=== PATIENT | female | born 1965 | race Caucasian/White ===

== ENCOUNTER 2018-11-30 15:13 | Inpatient (IN) | payer OTHER ==
[~2018-11-30] VITALS: Ht 162.6 cm; Wt 126.8 kg
[2018-11-30] MEDS ORDERED: KETOROLAC 15 MG INJ IV STA (20:15)
[2018-11-30] MEDS ORDERED: CEFTRIAXONE 1 GM/50 ML (PMX) 50 ML IVPB ONE (21:00)
--- NOTE | 2018-11-30 21:05 | ERD ---
ER Documentation Chief Complaint Chief Complaint RIGHT LOWER LEG SWELLING & RED NON-RAISED RASH HPI 53-year-old woman complains of right anterior lower leg redness and swelling with a rash x2 to 3 days, she has had peripheral edema in the past. Patient denies fevers or chills, no cough, no shortness of breath or chest pain, no hea dache or blurry vision. Patient denies any trauma to the leg or foot. ROS All systems reviewed and are negative except as per history of present illness. Allergies Allergies: Coded Allergies: No Known Allergy (Unverified , 11/30/18) PMhx/Soc obesity, hypertension Medical and Surgical Hx: pt denies Medical Hx, pt denies Surgical Hx History of Surgery: No Anesthesia Reaction: No Hx Neurological Disorder: No Hx Respiratory Disorders: No Hx Cardiac Disorders: No Hx Psychiatric Problems: No Hx Miscellaneous Medical Probl: No Hx Alcohol Use: No Hx Substance Use: No Hx Tobacco Use: No Smoking Status: Never smoker FmHx Family History: No diabetes Physical Exam Vitals Vital Signs Date Temp Pulse Resp B/P (MAP) Pulse Ox O2 O2 Flow FiO2 Time Delivery Rate 11/30/18 124 18 141/72 100 Room Air 19:30 (95) 11/30/18 99.0 88 20 182/104 96 15:27 (130) Physical Exam GENERAL: Well-developed, well-nourished, well-hydrated, in no apparent distress, looks nontoxic in appearance, afebrile CARDIAC: Initially tachycardic and regular, no murmurs rubs or gallops LUNGS: Clear bilaterally no wheezing crackles or stridor ABDOMEN: Soft nontender, no guarding, no rigidity, no rebound, no psoas sign no obturator sign. Normoactive bowel sounds SKIN: Warm and dry to touch, large zone of erythema and induration over the right anterior lower leg with 1+ pitting edema, calves generally symmetrical but no edema in the left lower extremity, no ulcers or pustules noted EXTREMITIES: No clubbing cyanosis, 1+ pitting edema in the right lower extremity, calves are bilaterally symmetrical, no Homans sign, no popliteal cord sign. Distal pulses equal and bilateral PSYCH: Normal affect without agitation or irritability Result Diagram: 11/30/18193411/30/181934 Results 24 hrs Laboratory Tests Test 11/30/18 19:35 White Blood Count 16.1 10^3/ul Red Blood Count 5.03 10^6/ul Hemoglobin 14.2 g/dl Hematocrit 44.4 % Mean Corpuscular Volume 88.3 fl Mean Corpuscular Hemoglobin 28.2 pg Mean Corpuscular Hemoglobin Concent 32.0 g/dl Red Cell Distribution Width 13.7 % Platelet Count 270 10^3/UL Mean Platelet Volume 10.8 fl Immature Granulocytes % 0.500 % Neutrophils % 77.4 % Lymphocytes % 14.9 % Monocytes % 5.8 % Eosinophils % 0.9 % Basophils % 0.5 % Nucleated Red Blood Cells % 0.0 /100WBC Immature Granulocytes # 0.080 10^3/ul Neutrophils # 12.5 10^3/ul Lymphocytes # 2.4 10^3/ul Monocytes # 0.9 10^3/ul Eosinophils # 0.1 10^3/ul Basophils # 0.1 10^3/ul Nucleated Red Blood Cells # 0.0 10^3/ul Sodium Level 145 mmol/L Potassium Level 3.7 mmol/L Chloride Level 100 mmol/L Carbon Dioxide Level 32 mmol/L Anion Gap 13 Blood Urea Nitrogen 10 mg/dl Creatinine 0.76 mg/dl Est Glomerular Filtrat Rate mL/min > 60 mL/min Glucose Level 152 mg/dl Calcium Level 9.3 mg/dl C-Reactive Protein 20.1 mg/dl Current Medications Medications Dose Sig/Fabrice Start Time Status Last (Trade) Ordered Route PRN Stop Time Admin Dose Reason Admin Ketorolac 15 mg ONCE STAT 11/30/18 DC 11/30/18 Tromethamine IV 20:15 20:23 (Toradol) 11/30/18 20:17 Ceftriaxone 50 ml @ ONCE ONCE 11/30/18 DC 11/30/18 Sodium 100 mls/hr IVPB 21:00 21:27 11/30/18 21:29 Vancomycin VANCOMYCIN PER 11/30/18 UNV HCl (Vanco PER PHARMACY PROTOCOL XX 22:00 Iv Per Pharmacy) IV Flush 3 ml PER 11/30/18 UNV (NS 3 ml) PROTOCOL IV 22:00 Ondansetron 4 mg Q6H PRN 11/30/18 UNV HCl (Zofran IV 22:00 Inj) NAUSEA/VOMITI NG 650 mg Q6H PRN 11/30/18 UNV Acetaminophen PO .PAIN 1-3 22:00 (Tylenol OR TEMP Tab) 1 tab Q6H PRN 11/30/18 UNV Acetaminophen PO .MOD PAIN 22:00 / 4-6 Hydrocodone Bitart ([place] (5/325)) Docusate 100 mg Q12H PRN 11/30/18 UNV Sodium PO 22:00 (Colace) .CONSTIPATION Bisacodyl 5 mg DAILY PRN 11/30/18 UNV (Dulcolax) PO 22:00 .CONSTIPATION Enoxaparin 40 mg DAILY SC 12/01/18 UNV Sodium 09:00 (Lovenox) Procedures/MDM IV line was established patient was placed on site monitor rhythm strip revealed a sinus rhythm at about 80 bpm with upright P and T waves. Patient was afebrile I administered Toradol 15 mg IV for pain. CBC reveals a leukocytosis of 16, electrolytes were unremarkable, CRP elevated at 20 Doppler ultrasound of the right lower extremity has been ordered all veins compressible, no DVT. Patient has obvious right lower extremity cellulitis and I administered ceftriaxone 1 g IV Patient will be admitted to [facility] for continued IV antibiotics Departure Diagnosis: Primary Impression: Lower extremity cellulitis Laterality: right Qualified Codes: L03.115 - Cellulitis of right lower limb Condition: DORI Blount MD Nov 30, 2018 21:04
--- NOTE | 2018-11-30 21:41 | HP ---
Date/Time of Note Date/Time of Note DATE: 11/30/18 TIME: 21:41 Assessment/Plan VTE Prophylaxis Pharmacological prophylaxis: LMWH Lines/Catheters IV [facility]ter [facility]from [facility]): Saline Lock Assessment/Plan Hospital Course This is a 53-year female being admitted to the [facility] floor for: #1 right lower extremity cellulitis: Etiology unknown, no overt trauma noted. Possibly secondary to morbid obesity. Elevated CRP. Vancomycin IV per pharmacy. Right CT of the lower extremities also been ordered to evaluate for any underlying abscess. Monitor for any signs of fevers. Ultrasound venous Dopplers of the right lower extremity were negative for DVT #2 morbid obesity: We will check hemoglobin A 1C, lipid panel, TSH, encourage diet and lifestyle modification #3 DVT GI prophylaxis: Lovenox, no GI prophylaxis indicated Further treatment strategy will be implemented as per the clinical course. Result Diagram: 11/30/18193411/30/181934 Results 24hrs Laboratory Tests Test 11/30/18 19:35 White Blood Count 16.1 H Red Blood Count 5.03 Hemoglobin 14.2 Hematocrit 44.4 Mean Corpuscular Volume 88.3 Mean Corpuscular Hemoglobin 28.2 L Mean Corpuscular Hemoglobin Concent 32.0 Red Cell Distribution Width 13.7 Platelet Count 270 Mean Platelet Volume 10.8 H Immature Granulocytes % 0.500 H Neutrophils % 77.4 H Lymphocytes % 14.9 L Monocytes % 5.8 Eosinophils % 0.9 Basophils % 0.5 Nucleated Red Blood Cells % 0.0 Immature Granulocytes # 0.080 H Neutrophils # 12.5 H Lymphocytes # 2.4 Monocytes # 0.9 Eosinophils # 0.1 Basophils # 0.1 Nucleated Red Blood Cells # 0.0 Sodium Level 145 H Potassium Level 3.7 Chloride Level 100 Carbon Dioxide Level 32 H Anion Gap 13 Blood Urea Nitrogen 10 Creatinine 0.76 Est Glomerular Filtrat Rate mL/min > 60 Glucose Level 152 Calcium Level 9.3 C-Reactive Protein 20.1 H HPI/ROS Admit Date/Time Admit Date/Time Hx of Present Illness Chief complaint: Right lower leg redness swelling, pain 53-year-old woman complains of right anterior lower leg redness and swelling with a rash x2. Presents with her daughter. She states that this is never occurred to her before. She denies any trauma or cuts to the right lower extremity. She reports subjective fevers at home, but did not check her temperature., no cough, no shortness of breath or chest pain, no headache or blurry vision. Allergies: NKDA Medications: None ROS Const: As per HPI Eyes : No pain discharge or redness or change in visual acuity ENT: No pain, sore throat, congestion, congestion, dysphagia or discharge Respiratory: No shortness of breath, cough, sputum, wheezing, or pleuritic pain Cardiovascular: No chest pain, palpitation, PND, or edema GI : no change in appetite, abdominal pain, nausea, vomiting, diarrhea, constipation, or change in the color his stool Genitourinary: No dysuria, hematuria, flank pain , discharge or CVA tenderness Musculoskeletal: As per HPI Skin: As per HPI Neuro: No headache, dizziness, syncope, seizure, focal weakness Endocrine: No polyuria, polydipsia, temperature intolerance Psych: No hallucination, depression, anxiety or suicidal ideation PMH/Family/Social Past Medical History Medical History: no pertinent history Coded Allergies: No Known Allergy (Unverified , 11/30/18) Past Surgical History x2 Family History Significant Family History: no pertinent family hx Social History Alcohol Use: none Smoking Status: Never smoker Drug Use: none Exam/Review of Systems Vital Signs Vitals Vital Signs Date Temp Pulse Resp B/P (MAP) Pulse Ox O2 O2 Flow FiO2 Time Delivery Rate 11/30/18 124 18 141/72 100 Room Air 19:30 (95) 11/30/18 99.0 15:27 Exam Exam General: Pleasant female currently lying in bed in no acute distress HEENT: Atraumatic, normocephalic. The pupils are equal, round and reactive. Extraocular motor are intact Neck: Supple with full range of motion. No rigidity or meningismus Chest: Nontender Lungs: Clear to auscultation bilaterally no crackles rales or wheezing Heart: Normal S1-S2, Regular rhythm and rate. No murmur, S3, or S4 Abdomen: Soft , nontender, nondistended , bowel sounds are present. No guarding no rebound tenderness , No masses or organomegaly. No costovertebral temporal angle mass Extremities: Redness and erythema and mild swelling noted of the right lower extremity, swelling of the right lower extremity slightly greater than the left Skin: Right lower extremity redness and erythema and warmth noted from the ankle to the knee, lines of demarcation have been drawn. Dry skin noted of the right great toe plantar surface but no overt lesions or lacerations noted Neurologic: Normal mental status, speech normal, cranial nerves II through XII are intact, motor and sensory are intact, no focal weakness Additional Comments PROCEDURE: US Lower extremity Venous. CLINICAL INDICATION: Right lower extremity erythema and swelling TECHNIQUE: Multiple sonographic images of the right lower extremity deep venous system were obtained utilizing grayscale, color-flow, compressive sonography and doppler imaging with augmentation. The images were reviewed on a PACS workstation. COMPARISON: None. FINDINGS: There is normal compressibility and flow within the right common femoral, deep femoral, superficial femoral and popliteal veins. The deep veins of the calf were also visualized and without thrombus. IMPRESSION: No sonographic evidence for deep venous thrombosis in the right lower extremity. Tony Gloria Physician Date Time Electronically viewed and signed by Tony Gloria Physician on 11/30/2018 21:03 ML/ CC: DORI TEIXEIRA MD [id number] MARGI BRANDT Nov 30, 2018 21:41
[2018-11-30] MEDS ORDERED: ONDANSETRON 4 MG INJ IV PRN (22:00)
[2018-11-30] MEDS ORDERED: VANCOMYCIN IV PER PHARMACY XX SCH (22:00)
[2018-11-30] MEDS ORDERED: HYDROCODONE/APAP (5/325) TAB PO PRN (22:00)
[2018-11-30] MEDS ORDERED: DOCUSATE SODIUM 100 MG CAP PO PRN (22:00)
[2018-11-30] MEDS ORDERED: NACL 0.9% 3 ML SYG IV SCH (22:00)
[2018-11-30] MEDS ORDERED: BISACODYL (EC) 5 MG TAB PO PRN (22:00)
[2018-11-30] MEDS ORDERED: IOHEXOL 300MG/ML 150 ML BTL ONE (22:49)
[2018-11-30] MEDS ORDERED: SOD CHLORIDE 0.9% 100 ML ONE (22:49)
[2018-11-30 23:00] VITALS: BP 142/64; PULSE 91; RESP 18
[2018-11-30] MEDS ORDERED: VANCOMYCIN HCL 2 GM in SOD CHLORIDE 0.9% 500 ML IVPB SCH (23:30)
[2018-11-30 23:35] VITALS: Ht 162.6 cm; Wt 126.8 kg
[2018-12-01 01:25] VITALS: BP 113/57; PULSE 104; RESP 18
[2018-12-01 02:58] VITALS: BP 108/59; PULSE 100; RESP 18
[2018-12-01] MEDS: ACETAMINOPHEN 325 MG TAB PO PRN ×2 (03:02→14:48)
[2018-12-01 07:37] VITALS: BP 130/65; PULSE 86; RESP 16
[2018-12-01] MEDS: VANCOMYCIN HCL 1.5 GM in SOD CHLORIDE 0.9% 250 ML IVPB SCH ×2 (09:32→21:00)
[2018-12-01] MEDS: ENOXAPARIN 40 MG/0.4 ML SYG SC SCH (09:33)
[2018-12-01] MEDS ORDERED: POTASSIUM CHLORIDE (SR) 20 MEQ TAB PO STA (11:14)
[2018-12-01 13:45] VITALS: BP 128/60; PULSE 102; RESP 16
--- NOTE | 2018-12-01 15:26 | PN ---
Date/Time of Note Date/Time of Note DATE: 12/01/18 TIME: 15:24 Assessment/Plan VTE Prophylaxis Risk score (from Nsg)>0 risk: 1 Pharmacological prophylaxis: LMWH Lines/Catheters IV Catheter Type (from Nrsg): Peripheral IV Urinary Cath still in place: No Assessment/Plan Hospital Course 1. Right lower extremity cellulitis Etiology unclear, possibly related to morbid obesity Continue vancomycin IV Ultrasound of lower extremities negative for DVT, CT of the lower extremity is negative for abscess but cellulitis is noted 2. Morbid obesity Left cell changes Prophylaxis: Lovenox Result Diagram: 12/01/18 0357 12/01/18 0357 Results 24hrs Laboratory Tests Test 11/30/18 19:35 12/01/18 03:40 12/01/18 03:57 12/01/18 05:23 White Blood Count 16.1 H 12.5 #H Red Blood Count 5.03 4.29 Hemoglobin 14.2 12.0 Hematocrit 44.4 36.8 L Mean Corpuscular 88.3 85.8 Volume Mean Corpuscular 28.2 L 28.0 L Hemoglobin Mean Corpuscular 32.0 32.6 Hemoglobin Concent Red Cell 13.7 13.6 Distribution Width Platelet Count 270 236 Mean Platelet Volume 10.8 H 10.4 Immature 0.500 H 0.200 Granulocytes % Neutrophils % 77.4 H 80.0 H Lymphocytes % 14.9 L 13.0 L Monocytes % 5.8 6.2 Eosinophils % 0.9 0.2 Basophils % 0.5 0.4 Nucleated Red Blood 0.0 0.0 Cells % Immature 0.080 H 0.030 Granulocytes # Neutrophils # 12.5 H 10.0 H Lymphocytes # 2.4 1.6 Monocytes # 0.9 0.8 Eosinophils # 0.1 0.0 Basophils # 0.1 0.1 Nucleated Red Blood 0.0 0.0 Cells # Sodium Level 145 H 138 Potassium Level 3.7 3.2 L Chloride Level 100 102 Carbon Dioxide Level 32 H 27 Anion Gap 13 9 Blood Urea Nitrogen 10 11 Creatinine 0.76 0.69 Est Glomerular > 60 > 60 Filtrat Rate mL/min Glucose Level 152 140 Calcium Level 9.3 8.4 C-Reactive Protein 20.1 H 16.4 H Lactic Acid Level 1.1 Erythrocyte 60 H Sedimentation Rate Hemoglobin A1c 6.1 H Magnesium Level 2.1 Total Bilirubin 0.5 Direct Bilirubin 0.00 Indirect Bilirubin 0.5 Aspartate Amino 40 Transf (AST/SGOT) Alanine 45 Aminotransferase (AL T/SGPT) Alkaline Phosphatase 90 Total Protein 7.4 Albumin 3.7 Globulin 3.70 H Albumin/Globulin 1.00 Ratio Triglycerides Level 96 Cholesterol Level 123 LDL Cholesterol, 79 Calculated HDL Cholesterol 25 L Cholesterol/HDL 4.9 Ratio Thyroid Stimulating 1.150 Hormone (TSH) Prothrombin Time 13.5 Prothrombin Time 1.1 Ratio INR International 1.02 Normalized Ratio Activated 31.6 Partial Thromboplast Time Subjective 24 Hr Interval Summary Constitutional: no complaints Exam/Review of Systems Exam Vitals Vital Signs Date Temp Pulse Resp B/P (MAP) Pulse Ox O2 O2 Flow FiO2 Time Delivery Rate 12/01/18 101.6 14:48 12/01/18 102 16 128/60 96 13:45 (82) 11/30/18 Room Air 23:00 Intake and Output 11/30/18 11/30/18 12/01/18 1515:00 23:00 07:00 IntakeIntake Total 50 ml BalanceBalance 50 ml Constitutional: alert, oriented Respiratory: clear to auscultation Cardiovascular: regular rate and rhythm Gastrointestinal: soft; No distended Musculoskeletal: No nl extremities to inspection Results Results 24hrs Laboratory Tests Test 11/30/18 19:35 12/01/18 03:40 12/01/18 03:57 12/01/18 05:23 White Blood Count 16.1 H 12.5 #H Red Blood Count 5.03 4.29 Hemoglobin 14.2 12.0 Hematocrit 44.4 36.8 L Mean Corpuscular 88.3 85.8 Volume Mean Corpuscular 28.2 L 28.0 L Hemoglobin Mean Corpuscular 32.0 32.6 Hemoglobin Concent Red Cell 13.7 13.6 Distribution Width Platelet Count 270 236 Mean Platelet Volume 10.8 H 10.4 Immature 0.500 H 0.200 Granulocytes % Neutrophils % 77.4 H 80.0 H Lymphocytes % 14.9 L 13.0 L Monocytes % 5.8 6.2 Eosinophils % 0.9 0.2 Basophils % 0.5 0.4 Nucleated Red Blood 0.0 0.0 Cells % Immature 0.080 H 0.030 Granulocytes # Neutrophils # 12.5 H 10.0 H Lymphocytes # 2.4 1.6 Monocytes # 0.9 0.8 Eosinophils # 0.1 0.0 Basophils # 0.1 0.1 Nucleated Red Blood 0.0 0.0 Cells # Sodium Level 145 H 138 Potassium Level 3.7 3.2 L Chloride Level 100 102 Carbon Dioxide Level 32 H 27 Anion Gap 13 9 Blood Urea Nitrogen 10 11 Creatinine 0.76 0.69 Est Glomerular > 60 > 60 Filtrat Rate mL/min Glucose Level 152 140 Calcium Level 9.3 8.4 C-Reactive Protein 20.1 H 16.4 H Lactic Acid Level 1.1 Erythrocyte 60 H Sedimentation Rate Hemoglobin A1c 6.1 H Magnesium Level 2.1 Total Bilirubin 0.5 Direct Bilirubin 0.00 Indirect Bilirubin 0.5 Aspartate Amino 40 Transf (AST/SGOT) Alanine 45 Aminotransferase (AL T/SGPT) Alkaline Phosphatase 90 Total Protein 7.4 Albumin 3.7 Globulin 3.70 H Albumin/Globulin 1.00 Ratio Triglycerides Level 96 Cholesterol Level 123 LDL Cholesterol, 79 Calculated HDL Cholesterol 25 L Cholesterol/HDL 4.9 Ratio Thyroid Stimulating 1.150 Hormone (TSH) Prothrombin Time 13.5 Prothrombin Time 1.1 Ratio INR International 1.02 Normalized Ratio Activated 31.6 Partial Thromboplast Time Medications Medication Current Medications Vancomycin HCl (Vanco Iv Per Pharmacy) VANCOMYCIN PER PHARMACY PER PROTOCOL XX ; Start 11/30/18 at 22:00 IV Flush (NS 3 ml) 3 ml PER PROTOCOL IV ; Start 11/30/18 at 22:00 Ondansetron HCl (Zofran Inj) 4 mg Q6H PRN IV NAUSEA/VOMITING; Start 11/30/18 at 22:00 Acetaminophen (Tylenol Tab) 650 mg Q6H PRN PO .PAIN 1-3 OR TEMP Last administered on 12/01/18at 14:48; Admin Dose 650 MG; Start 11/30/18 at 22:00 Acetaminophen/ Hydrocodone Bitart ([place] (5/325)) 1 tab Q6H PRN PO .MOD PAIN 4- 6; Start 11/30/18 at 22:00 Docusate Sodium (Colace) 100 mg Q12H PRN PO .CONSTIPATION; Start 11/30/18 at 22:00 Bisacodyl (Dulcolax) 5 mg DAILY PRN PO .CONSTIPATION; Start 11/30/18 at 22:00 Enoxaparin Sodium (Lovenox) 40 mg DAILY SC Last administered on 12/01/18at 09:33; Admin Dose 40 MG; Start 12/01/18 at 09:00 Vancomycin HCl 1.5 gm/Sodium Chloride 250 ml @ 83.333 mls/ hr Q12H IVPB Last administered on 12/01/18at 09:32; Admin Dose 83.333 MLS/HR; Start 12/01/18 at 10:00 Miscellaneous Information (*Rx Drug Level Order Reminder*) VANCO TROUGH @ 0,900 0900 ONCE XX ; Start 12/02/18 at 09:00; Stop 12/02/18 at 09:01 TAL IRIZARRY Dec 01, 2018 15:26
[2018-12-01 19:58] VITALS: BP 137/79; PULSE 94; RESP 17
[2018-12-02 02:40] VITALS: BP 128/75; PULSE 79; RESP 18
[2018-12-02 07:55] VITALS: BP 134/78; PULSE 78; RESP 15; RESP 89
[2018-12-02] MEDS: ENOXAPARIN 40 MG/0.4 ML SYG SC SCH (09:55)
[2018-12-02] MEDS: VANCOMYCIN HCL 1.5 GM in SOD CHLORIDE 0.9% 250 ML IVPB SCH (10:09)
[2018-12-02] MEDS ORDERED: POTASSIUM CHLORIDE (SR) 20 MEQ TAB PO STA (11:53)
[2018-12-02 14:03] VITALS: BP 137/81; PULSE 91; RESP 16
--- NOTE | 2018-12-02 15:30 | PN ---
Date/Time of Note Date/Time of Note DATE: 12/02/18 TIME: 15:30 Assessment/Plan VTE Prophylaxis Risk score (from Nsg)>0 risk: 3 Pharmacological prophylaxis: LMWH Lines/Catheters IV Catheter Type (from Nrsg): Peripheral IV Urinary Cath still in place: No Assessment/Plan Hospital Course 1. Right lower extremity cellulitis/rash Etiology unclear Consultation appreciated Surgery consultation for biopsy Continue vancomycin IV, add doxycycline Ultrasound of lower extremities negative for DVT, CT of the lower extremity is negative for abscess but cellulitis is noted 2. Morbid obesity Lifestyle changes Prophylaxis: Lovenox Result Diagram: 12/02/18 0838 12/02/1838 Results 24hrs Laboratory Tests Test 12/02/18 08:38 White Blood Count 13.0 H Red Blood Count 4.24 Hemoglobin 11.7 L Hematocrit 36.8 L Mean Corpuscular Volume 86.8 Mean Corpuscular Hemoglobin 27.6 L Mean Corpuscular Hemoglobin Concent 31.8 L Red Cell Distribution Width 13.9 Platelet Count 256 Mean Platelet Volume 10.6 H Immature Granulocytes % 0.600 H Neutrophils % 72.1 Lymphocytes % 17.0 Monocytes % 9.1 Eosinophils % 0.6 Basophils % 0.6 Nucleated Red Blood Cells % 0.0 Immature Granulocytes # 0.080 H Neutrophils # 9.4 H Lymphocytes # 2.2 Monocytes # 1.2 H Eosinophils # 0.1 Basophils # 0.1 Nucleated Red Blood Cells # 0.0 Sodium Level 140 Potassium Level 3.4 L Chloride Level 102 Carbon Dioxide Level 30 Anion Gap 8 Blood Urea Nitrogen 7 Creatinine 0.71 Est Glomerular Filtrat Rate mL/min > 60 Glucose Level 124 Calcium Level 8.8 Total Bilirubin 0.6 Direct Bilirubin 0.00 Indirect Bilirubin 0.6 Aspartate Amino Transf (AST/SGOT) 40 Alanine Aminotransferase (ALT/SGPT) 49 Alkaline Phosphatase 107 Total Protein 7.6 Albumin 3.8 Globulin 3.80 H Albumin/Globulin Ratio 1.00 Vancomycin Level Trough 7.0 L Subjective 24 Hr Interval Summary Constitutional: no complaints Exam/Review of Systems Exam Vitals Vital Signs Date Temp Pulse Resp B/P (MAP) Pulse Ox O2 O2 Flow FiO2 Time Delivery Rate 12/02/18 99.5 91 16 137/81 97 Room Air 14:03 (99) Intake and Output 12/01/18 12/01/18 12/02/18 1515:00 23:00 07:00 IntakeIntake Total 640 ml 440 ml 250 ml BalanceBalance 640 ml 440 ml 250 ml Constitutional: alert, oriented Respiratory: clear to auscultation Cardiovascular: regular rate and rhythm Gastrointestinal: soft; No distended Musculoskeletal: No nl extremities to inspection Results Results 24hrs Laboratory Tests Test 12/02/18 08:38 White Blood Count 13.0 H Red Blood Count 4.24 Hemoglobin 11.7 L Hematocrit 36.8 L Mean Corpuscular Volume 86.8 Mean Corpuscular Hemoglobin 27.6 L Mean Corpuscular Hemoglobin Concent 31.8 L Red Cell Distribution Width 13.9 Platelet Count 256 Mean Platelet Volume 10.6 H Immature Granulocytes % 0.600 H Neutrophils % 72.1 Lymphocytes % 17.0 Monocytes % 9.1 Eosinophils % 0.6 Basophils % 0.6 Nucleated Red Blood Cells % 0.0 Immature Granulocytes # 0.080 H Neutrophils # 9.4 H Lymphocytes # 2.2 Monocytes # 1.2 H Eosinophils # 0.1 Basophils # 0.1 Nucleated Red Blood Cells # 0.0 Sodium Level 140 Potassium Level 3.4 L Chloride Level 102 Carbon Dioxide Level 30 Anion Gap 8 Blood Urea Nitrogen 7 Creatinine 0.71 Est Glomerular Filtrat Rate mL/min > 60 Glucose Level 124 Calcium Level 8.8 Total Bilirubin 0.6 Direct Bilirubin 0.00 Indirect Bilirubin 0.6 Aspartate Amino Transf (AST/SGOT) 40 Alanine Aminotransferase (ALT/SGPT) 49 Alkaline Phosphatase 107 Total Protein 7.6 Albumin 3.8 Globulin 3.80 H Albumin/Globulin Ratio 1.00 Vancomycin Level Trough 7.0 L Medications Medication Current Medications Vancomycin HCl (Vanco Iv Per Pharmacy) VANCOMYCIN PER PHARMACY PER PROTOCOL XX ; Start 11/30/18 at 22:00 IV Flush (NS 3 ml) 3 ml PER PROTOCOL IV Last administered on 12/02/18at 10:14; Admin Dose 3 ML; Start 11/30/18 at 22:00 Ondansetron HCl (Zofran Inj) 4 mg Q6H PRN IV NAUSEA/VOMITING; Start 11/30/18 at 22:00 Acetaminophen (Tylenol Tab) 650 mg Q6H PRN PO .PAIN 1-3 OR TEMP Last administered on 12/01/18at 14:48; Admin Dose 650 MG; Start 11/30/18 at 22:00 Acetaminophen/ Hydrocodone Bitart ([place] (5/325)) 1 tab Q6H PRN PO .MOD PAIN 4- 6; Start 11/30/18 at 22:00 Docusate Sodium (Colace) 100 mg Q12H PRN PO .CONSTIPATION; Start 11/30/18 at 22:00 Bisacodyl (Dulcolax) 5 mg DAILY PRN PO .CONSTIPATION; Start 11/30/18 at 22:00 Enoxaparin Sodium (Lovenox) 40 mg DAILY SC Last administered on 12/02/18at 09:55; Admin Dose 40 MG; Start 12/01/18 at 09:00 Vancomycin HCl 1.25 gm/Sodium Chloride 250 ml @ 83.333 mls/ hr Q8H IVPB ; S tart 12/02/18 at 18:00 Miscellaneous Information (*Rx Drug Level Order Reminder*) MADELEINEO TR AT 1 700 1700 ONCE XX ; Start 12/03/18 at 17:00; Stop 12/03/18 at 17:01 TAL IRIZARRY Dec 02, 2018 15:30
[2018-12-02] MEDS: VANCOMYCIN HCL 1.25 GM in SOD CHLORIDE 0.9% 250 ML IVPB SCH (17:10)
[2018-12-02 19:43] VITALS: BP 118/61; PULSE 97; RESP 18
[2018-12-02] MEDS: DOXYCYCLINE 100 MG TAB PO SCH (20:22)
[2018-12-03] MEDS: VANCOMYCIN HCL 1.25 GM in SOD CHLORIDE 0.9% 250 ML IVPB SCH ×3 (01:06→18:20)
[2018-12-03 01:38] VITALS: BP 129/63; PULSE 90; RESP 18
[2018-12-03 08:05] VITALS: BP 135/72; PULSE 85; RESP 18
[2018-12-03] MEDS: DOXYCYCLINE 100 MG TAB PO SCH ×2 (09:05→20:18)
[2018-12-03] MEDS: ENOXAPARIN 40 MG/0.4 ML SYG SC SCH (09:06)
--- NOTE | 2018-12-03 09:08 | CONS ---
DATE OF ADMISSION: 11/30/2018 DATE OF CONSULTATION: 12/02/2018 TYPE OF CONSULTATION: Infectious Disease. REASON FOR CONSULTATION: Antibiotic management. HISTORY OF PRESENT ILLNESS: Katie Schumacher is a 53-year-old female with right lower leg swelling and red nonraised rash. The patient comes in complaining of right anterior lower leg redness and swelling w ith a rash for 2 or 3 days. She has had peripheral edema in the past. She denies fever or chills. She denies shortness of breath. Systems are negative except for present illness. PAST MEDICAL HISTORY: As outlined. FAMILY HISTORY: Noncontributory. SOCIAL HISTORY: She does not smoke, drink or abuse drugs. ALLERGIES: NONE TO PENICILLIN, SULFA OR FOODS. MEDICATIONS: Per chart. REVIEW OF SYSTEMS: As per HPI. ANCILLARY LABORATORY DATA: White count 16.1, H and H 14.2 and 44.4, platelet count 270,000. BUN and creatinine 10/0.76, glucose of 152. IMPRESSION AND PLAN: The patient has right lower extremity cellulitis. She has morbid obesity. She has an elevated CRP. She is on vancomycin. A CT scan of the right lower extremity has been ordered . The CT scan shows extensive soft tissue swelling most pronounced along the distal fibula and tibia , likely reflective of cellulitis. No discrete soft tissue abscess is evident. No acute bony change s. Currently, she has no evidence of DVT. We will continue her on her current therapy of vancomycin and observe for improvement. If she does not improve, we will add gram-negative coverage. I will d ictate my findings to the hospitalist. Dictated By: FLEX CASTANEDA MD, JD/AIDA Conf#: [id number] DID#: [id number] CC: TAL IRIZARRY MD; MARGI BRANDT MD;*EndCC*
[2018-12-03] MEDS ORDERED: LIDOCAINE 2%/EPI (MDV) 20ML INJ INJ STA (10:21)
--- NOTE | 2018-12-03 10:43 | CONS ---
"Assessment/Plan Assessment/Plan Hospital Course (Demo Recall) 1. Right lower extremity cellulitis of unknown etiology -Skin biopsy today -Continue antibiotics per ID -Local care 2. Leukocytosis: Improved: -As above 3.Prediabetes: Hemoglobin A1c 6.1: -Highly encourage weight loss -Glucose optimization 4. Morbid obesity BMI: 48 -diet and exercise optimization -encourage weight loss Thank you. Patient seen and examined in collaboration with Dr. Hill Morris. Consultation Date/Type/Reason Admit Date/Time Date of Consultation: Dec 03, 2018 Type of Consult Surgical Reason for Consultation Skin biopsy Requesting Provider: TAL IRIZARRY Date/Time of Note DATE: 12/03/18 TIME: 10:26 Hx of Present Illness Katie Schumacher is a 53-year-old woman with past medical history of obesity who pres ents to the ED with complaints of right lower extremity redness and swelling the presented 1 day prior to admission. She denies trauma to the area, denies taking new medications, new detergents, new cosmetic products, changes in routine, recent sick contacts, history of the same. She reports subjective fevers at home. She denies chills, congestive cough, chest pain, palpitations, GI symptoms, change in bowel or bladder habits, numbness or tingling of extremities. On work-up, she was noted to have leukocytosis and was started on antibiotics for cellulitis of right lower extremity. CT of the right lower extremity shows extensive soft tissue swelling most pronounced along distal fibula and tibia likely reflective of cellulitis without evidence of soft tissue abscess. Ultrasound of the right lower extremity is negative for DVT. General surgery was asked to evaluate. 12 point review of systems was performed and is negative except as stated in HPI. Past Medical History Morbid obesity: BMI 48 Medications Current Medications Vancomycin HCl (Vanco Iv Per Pharmacy) VANCOMYCIN PER PHARMACY PER PROTOCOL XX ; Start 11/30/18 at 22:00 IV Flush (NS 3 ml) 3 ml PER PROTOCOL IV Last administered on 12/02/18at 10:14; Admin Dose 3 ML; Start 11/30/18 at 22:00 Ondansetron HCl (Zofran Inj) 4 mg Q6H PRN IV NAUSEA/VOMITING; Start 11/30/18 at 22:00 Acetaminophen (Tylenol Tab) 650 mg Q6H PRN PO .PAIN 1-3 OR TEMP Last administered on 12/01/18at 14:48; Admin Dose 650 MG; Start 11/30/18 at 22:00 Acetaminophen/ Hydrocodone Bitart ([place] (5/325)) 1 tab Q6H PRN PO .MOD PAIN 4- 6; Start 11/30/18 at 22:00 Docusate Sodium (Colace) 100 mg Q12H PRN PO .CONSTIPATION; Start 11/30/18 at 22:00 Bisacodyl (Dulcolax) 5 mg DAILY PRN PO .CONSTIPATION; Start 11/30/18 at 22:00 Enoxaparin Sodium (Lovenox) 40 mg DAILY SC Last administered on 12/03/18at 09:06; Admin Dose 40 MG; Start 12/01/18 at 09:00 Vancomycin HCl 1.25 gm/Sodium Chloride 250 ml @ 83.333 mls/ hr Q8H IVPB Last administered on 12/03/18at 09:06; Admin Dose 83.333 MLS/HR; Start 12/02/18 at 18:00 Miscellaneous Information (*Rx Drug Level Order Reminder*) VANCO TR AT 1700 1700 ONCE XX ; Start 12/03/18 at 17:00; Stop 12/03/18 at 17:01 Doxycycline Hyclate (Vibramycin) 100 mg BID PO Last administered on 12/03/18at 09:05; Admin Dose 100 MG; Start 12/02/18 at 21:00 Lidocaine/ Epinephrine (Xylocaine 2%/ Epi (Mdv) 20 ml) 20 ml ONCE STAT INJ ; Start 12/03/18 at 10:21; Stop 12/03/18 at 10:22; Status UNV Allergies: Coded Allergies: No Known Allergy (Unverified , 11/30/18) Past Surgical History x2 Family History Significant Family History: no pertinent family hx Social History Alcohol Use: none Smoking Status: Never smoker Drug Use: none Exam/Review of Systems Exam Vitals Vital Signs Date Temp Pulse Resp B/P (MAP) Pulse Ox O2 O2 Flow FiO2 Time Delivery Rate 12/03/18 98.4 85 18 135/72 96 08:05 (93) 12/02/18 Room Air 14:03 Intake and Output 12/02/18 12/02/18 12/03/18 1515:00 23:00 07:00 IntakeIntake Total 250 ml 460 ml BalanceBalance 250 ml 460 ml Constitutional: alert, oriented Psych: nl mood/affect; No anxiety Head: normocephalic, atraumatic Eyes: nl conjunctiva, nl lids, nl sclera ENMT: nl external ears & nose, nl lips & teeth, mucosa pink and moist Neck: supple, non-tender; No jvd Respiratory: normal air movement; No congested cough Cardiovascular: regular rate and rhythm, nl pulses, edema (Right lower extremity) Gastrointestinal: soft, non-tender; No ascites, No distended Musculoskeletal: nl extremities to inspection, nl gait and stance; No joint tenderness Extremities: normal pulses, pitting pedal edema (Right lower extremity 1+) Neurological: nl mental status, nl speech, nl strength Skin: rash or lesions (Right lower extremity: Anterior: Large confluent areas of erythema | posterior: Multiple bullae) Results Result Diagram: 12/03/1815 12/03/1815 Results 24hrs Laboratory Tests Test 12/03/18 05:15 White Blood Count 14.6 H Red Blood Count 4.04 L Hemoglobin 11.3 L Hematocrit 35.6 L Mean Corpuscular Volume 88.1 Mean Corpuscular Hemoglobin 28.0 L Mean Corpuscular Hemoglobin Concent 31.7 L Red Cell Distribution Width 14.1 Platelet Count 263 Mean Platelet Volume 10.5 H Immature Granulocytes % 0.600 H Neutrophils % 70.1 Lymphocytes % 19.8 Monocytes % 7.3 Eosinophils % 1.6 Basophils % 0.6 Nucleated Red Blood Cells % 0.0 Immature Granulocytes # 0.090 H Neutrophils # 10.2 H Lymphocytes # 2.9 Monocytes # 1.1 H Eosinophils # 0.2 Basophils # 0.1 Nucleated Red Blood Cells # 0.0 Sodium Level 141 Potassium Level 4.7 Chloride Level 104 Carbon Dioxide Level 30 Anion Gap 7 Blood Urea Nitrogen 10 Creatinine 0.84 Est Glomerular Filtrat Rate mL/min > 60 Glucose Level 130 Calcium Level 8.7 Medications Medication Current Medications Vancomycin HCl (Vanco Iv Per Pharmacy) VANCOMYCIN PER PHARMACY PER PROTOCOL XX ; Start 11/30/18 at 22:00 IV Flush (NS 3 ml) 3 ml PER PROTOCOL IV Last administered on 12/02/18at 10:14; A dmin Dose 3 ML; Start 11/30/18 at 22:00 Ondansetron HCl (Zofran Inj) 4 mg Q6H PRN IV NAUSEA/VOMITING; Start 11/30/18 at 22:00 Acetaminophen (Tylenol Tab) 650 mg Q6H PRN PO .PAIN 1-3 OR TEMP Last adm inistered on 12/01/18at 14:48; Admin Dose 650 MG; Start 11/30/18 at 22:00 Acetaminophen/ Hydrocodone Bitart ([place] (5/325)) 1 tab Q6H PRN PO .MOD PAIN 4- 6; Start 11/30/18 at 22:00 Docusate Sodium (Colace) 100 mg Q12H PRN PO .CONSTIPATION; Start 11/30/18 at 22:00 Bisacodyl (Dulcolax) 5 mg DAILY PRN PO .CONSTIPATION; Start 11/30/18 at 22:00 Enoxaparin Sodium (Lovenox) 40 mg DAILY SC Last administered on 12/03/18at 09:06; Admin Dose 40 MG; Start 12/01/18 at 09:00 Vancomycin HCl 1.25 gm/Sodium Chloride 250 ml @ 83.333 mls/ hr Q8H IVPB Last administered on 12/03/18at 09:06; Admin Dose 83.333 MLS/HR; Start 12/02/18 at 18:00 Miscellaneous Information (*Rx Drug Level Order Reminder*) VANCO TR AT 1700 1700 ONCE XX ; Start 12/03/18 at 17:00; Stop 12/03/18 at 17:01 Doxycycline Hyclate (Vibramycin) 100 mg BID PO Last administered on 12/03/18at 09:05; Admin Dose 100 MG; Start 12/02/18 at 21:00 Lidocaine/ Epinephrine (Xylocaine 2%/ Epi (Mdv) 20 ml) 20 ml ONCE STAT INJ ; Start 12/03/18 at 10:21; Stop 12/03/18 at 10:22; Status TRICIA CAMP NP Dec 03, 2018 10:36"
--- NOTE | 2018-12-03 11:16 | OPR ---
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 Patient in her own bed supine. Area prepped and draped in sterile fashion. Timeout was performed. Local anesthetic was injected into the area. Using punch biopsy needle, skin sample was obtained from right medial lower extremity. Hemostasis was obtained using direct applied pressure. Dry dressing was applied. Tissue sample was sent. TRICIA JOAQUIN NP Dec 03, 2018 11:15
--- NOTE | 2018-12-03 14:27 | PN ---
Date/Time of Note Date/Time of Note DATE: 12/03/18 TIME: 14:26 Assessment/Plan VTE Prophylaxis Risk score (from Nsg)>0 risk: 3 Pharmacological prophylaxis: LMWH Lines/Catheters IV Catheter Type (from Nrsg): Peripheral IV Urinary Cath still in place: No Assessment/Plan Hospital Course 1. Right lower extremity cellulitis/rash-improving Etiology unclear Consultation appreciated Surgery consultation for biopsy appreciated, follow-up on pathology Continue vancomycin IV, add doxycycline Ultrasound of lower extremities negative for DVT, CT of the lower extremity is negative for abscess but cellulitis is noted 2. Morbid obesity Lifestyle changes Prophylaxis: Lovenox Result Diagram: 12/03/1815 12/03/1815 Results 24hrs Laboratory Tests Test 12/03/18 05:15 White Blood Count 14.6 H Red Blood Count 4.04 L Hemoglobin 11.3 L Hematocrit 35.6 L Mean Corpuscular Volume 88.1 Mean Corpuscular Hemoglobin 28.0 L Mean Corpuscular Hemoglobin Concent 31.7 L Red Cell Distribution Width 14.1 Platelet Count 263 Mean Platelet Volume 10.5 H Immature Granulocytes % 0.600 H Neutrophils % 70.1 Lymphocytes % 19.8 Monocytes % 7.3 Eosinophils % 1.6 Basophils % 0.6 Nucleated Red Blood Cells % 0.0 Immature Granulocytes # 0.090 H Neutrophils # 10.2 H Lymphocytes # 2.9 Monocytes # 1.1 H Eosinophils # 0.2 Basophils # 0.1 Nucleated Red Blood Cells # 0.0 Sodium Level 141 Potassium Level 4.7 Chloride Level 104 Carbon Dioxide Level 30 Anion Gap 7 Blood Urea Nitrogen 10 Creatinine 0.84 Est Glomerular Filtrat Rate mL/min > 60 Glucose Level 130 Calcium Level 8.7 Subjective 24 Hr Interval Summary Constitutional: no complaints Exam/Review of Systems Exam Vitals Vital Signs Date Temp Pulse Resp B/P (MAP) Pulse Ox O2 O2 Flow FiO2 Time Delivery Rate 12/03/18 98.4 85 18 135/72 96 08:05 (93) 12/02/18 Room Air 14:03 Intake and Output 12/02/18 12/02/18 12/03/18 1515:00 23:00 07:00 IntakeIntake Total 250 ml 460 ml BalanceBalance 250 ml 460 ml Constitutional: alert, oriented Respiratory: clear to auscultation Cardiovascular: regular rate and rhythm Gastrointestinal: soft; No distended Musculoskeletal: No nl extremities to inspection Results Results 24hrs Laboratory Tests Test 12/03/18 05:15 White Blood Count 14.6 H Red Blood Count 4.04 L Hemoglobin 11.3 L Hematocrit 35.6 L Mean Corpuscular Volume 88.1 Mean Corpuscular Hemoglobin 28.0 L Mean Corpuscular Hemoglobin Concent 31.7 L Red Cell Distribution Width 14.1 Platelet Count 263 Mean Platelet Volume 10.5 H Immature Granulocytes % 0.600 H Neutrophils % 70.1 Lymphocytes % 19.8 Monocytes % 7.3 Eosinophils % 1.6 Basophils % 0.6 Nucleated Red Blood Cells % 0.0 Immature Granulocytes # 0.090 H Neutrophils # 10.2 H Lymphocytes # 2.9 Monocytes # 1.1 H Eosinophils # 0.2 Basophils # 0.1 Nucleated Red Blood Cells # 0.0 Sodium Level 141 Potassium Level 4.7 Chloride Level 104 Carbon Dioxide Level 30 Anion Gap 7 Blood Urea Nitrogen 10 Creatinine 0.84 Est Glomerular Filtrat Rate mL/min > 60 Glucose Level 130 Calcium Level 8.7 Medications Medication Current Medications Vancomycin HCl (Vanco Iv Per Pharmacy) VANCOMYCIN PER PHARMACY PER PROTOCOL XX ; Start 11/30/18 at 22:00 IV Flush (NS 3 ml) 3 ml PER PROTOCOL IV Last administered on 12/02/18at 10:14; Admin Dose 3 ML; Start 11/30/18 at 22:00 Ondansetron HCl (Zofran Inj) 4 mg Q6H PRN IV NAUSEA/VOMITING; Start 11/30/18 at 22:00 Acetaminophen (Tylenol Tab) 650 mg Q6H PRN PO .PAIN 1-3 OR TEMP Last administered on 12/01/18at 14:48; Admin Dose 650 MG; Start 11/30/18 at 22:00 Acetaminophen/ Hydrocodone Bitart ([place] (5/325)) 1 tab Q6H PRN PO .MOD PAIN 4- 6; Start 11/30/18 at 22:00 Docusate Sodium (Colace) 100 mg Q12H PRN PO .CONSTIPATION; Start 11/30/18 at 22:00 Bisacodyl (Dulcolax) 5 mg DAILY PRN PO .CONSTIPATION; Start 11/30/18 at 22:00 Enoxaparin Sodium (Lovenox) 40 mg DAILY SC Last administered on 12/03/18at 09:06; Admin Dose 40 MG; Start 12/01/18 at 09:00 Vancomycin HCl 1.25 gm/Sodium Chloride 250 ml @ 83.333 mls/ hr Q8H IVPB Last administered on 12/03/18 09:06; Admin Dose 83.333 MLS/HR; Start 12/02/18 at 18:00 Miscellaneous Information (*Rx Drug Level Order Reminder*) VANCO TR AT 1700 1700 ONCE XX ; Start 12/03/18 at 17:00; Stop 12/03/18 at 17:01 Doxycycline Hyclate (Vibramycin) 100 mg BID PO Last administered on 12/03/18 09:05; Admin Dose 100 MG; Start 12/02/18 at 21:00 TAL IRIZARRY Dec 03, 2018 14:27
[2018-12-03 14:44] VITALS: BP 121/57; PULSE 88; RESP 18
--- NOTE | 2018-12-03 16:00 | CONS ---
Assessment/Plan Assessment/Plan Hospital Course (Demo Recall) Patient is alert feels good looks comfortable right lower extremity erythema improved. WBC 14.6 platelets 263 no shift BUN 10 creatinine 0.84 Microbiology: Blood cultures negative Antimicrobials: Patient is on IV vancomycin Physical examination this is a morbidly obese well-developed middle-aged woman who is alert in no distress head atraumatic normocephalic neck is supple trachea midline chest rise symmetrical breath sounds diminished bases heart S1-S2 abdomen obese soft bowel sounds present extremities with right lower extremity edema erythema Assessment: 1. Right lower extremity cellulitis 2. Morbid obesity Plan: Add Rocephin, continue vancomycin, keep right lower extremity elevated await for skin biopsy results Consultation Date/Type/Reason Admit Date/Time Nov 30, 2018 at 21:19 Initial Consult Date 12/03/18 Type of Consult id Requesting Provider: TAL IRIZARRY Date/Time of Note DATE: 12/03/18 TIME: 16:00 Exam/Review of Systems Exam Vitals Vital Signs Date Temp Pulse Resp B/P (MAP) Pulse Ox O2 O2 Flow FiO2 Time Delivery Rate 12/03/18 97.9 88 18 121/57 98 14:44 (78) 12/02/18 Room Air 14:03 Intake and Output 12/02/18 12/02/18 12/03/18 1515:00 23:00 07:00 IntakeIntake Total 250 ml 460 ml BalanceBalance 250 ml 460 ml Results Result Diagram: 12/03/18 0515 12/03/18 0515 Results 24hrs Laboratory Tests Test 12/03/18 05:15 White Blood Count 14.6 H Red Blood Count 4.04 L Hemoglobin 11.3 L Hematocrit 35.6 L Mean Corpuscular Volume 88.1 Mean Corpuscular Hemoglobin 28.0 L Mean Corpuscular Hemoglobin Concent 31.7 L Red Cell Distribution Width 14.1 Platelet Count 263 Mean Platelet Volume 10.5 H Immature Granulocytes % 0.600 H Neutrophils % 70.1 Lymphocytes % 19.8 Monocytes % 7.3 Eosinophils % 1.6 Basophils % 0.6 Nucleated Red Blood Cells % 0.0 Immature Granulocytes # 0.090 H Neutrophils # 10.2 H Lymphocytes # 2.9 Monocytes # 1.1 H Eosinophils # 0.2 Basophils # 0.1 Nucleated Red Blood Cells # 0.0 Sodium Level 141 Potassium Level 4.7 Chloride Level 104 Carbon Dioxide Level 30 Anion Gap 7 Blood Urea Nitrogen 10 Creatinine 0.84 Est Glomerular Filtrat Rate mL/min > 60 Glucose Level 130 Calcium Level 8.7 Medications Medication Current Medications Vancomycin HCl (Vanco Iv Per Pharmacy) VANCOMYCIN PER PHARMACY PER PROTOCOL XX ; Start 11/30/18 at 22:00 IV Flush (NS 3 ml) 3 ml PER PROTOCOL IV Last administered on 12/02/18at 10:14; Admin Dose 3 ML; Start 11/30/18 at 22:00 Ondansetron HCl (Zofran Inj) 4 mg Q6H PRN IV NAUSEA/VOMITING; Start 11/30/18 at 22:00 Acetaminophen (Tylenol Tab) 650 mg Q6H PRN PO .PAIN 1-3 OR TEMP Last administered on 12/01/18at 14:48; Admin Dose 650 MG; Start 11/30/18 at 22:00 Acetaminophen/ Hydrocodone Bitart ([place] (5/325)) 1 tab Q6H PRN PO .MOD PAIN 4- 6; Start 11/30/18 at 22:00 Docusate Sodium (Colace) 100 mg Q12H PRN PO .CONSTIPATION; Start 11/30/18 at 22:00 Bisacodyl (Dulcolax) 5 mg DAILY PRN PO .CONSTIPATION; Start 11/30/18 at 22:00 Enoxaparin Sodium (Lovenox) 40 mg DAILY SC Last administered on 12/03/18at 09:06; Admin Dose 40 MG; Start 12/01/18 at 09:00 Vancomycin HCl 1.25 gm/Sodium Chloride 250 ml @ 83.333 mls/ hr Q8H IVPB Last administered on 12/03/18at 09:06; Admin Dose 83.333 MLS/HR; Start 12/02/18 at 18:00 Miscellaneous Information (*Rx Drug Level Order Reminder*) VANCO TR AT 1700 1700 ONCE XX ; Start 12/03/18 at 17:00; Stop 12/03/18 at 17:01 Doxycycline Hyclate (Vibramycin) 100 mg BID PO Last administered on 12/03/18at 09:05; Admin Dose 100 MG; Start 12/02/18 at 21:00 KIRILL STILL NP Dec 03, 2018 16:00
[2018-12-03] MEDS: CEFTRIAXONE 1 GM/50 ML (PMX) 50 ML IVPB SCH (16:11)
[2018-12-03 19:45] VITALS: BP 137/90; PULSE 95; RESP 17
[2018-12-04] MEDS: VANCOMYCIN HCL 1.25 GM in SOD CHLORIDE 0.9% 250 ML IVPB SCH ×3 (02:08→17:59)
[2018-12-04 02:21] VITALS: BP 119/73; PULSE 91; RESP 19
[2018-12-04 07:26] VITALS: BP 132/84; PULSE 85; RESP 18
[2018-12-04] MEDS: DOXYCYCLINE 100 MG TAB PO SCH (08:19)
[2018-12-04] MEDS: ENOXAPARIN 40 MG/0.4 ML SYG SC SCH (08:20)
--- NOTE | 2018-12-04 13:43 | CONS ---
Assessment/Plan Assessment/Plan Hospital Course (Demo Recall) Patient is alert feels good Microbiology: Blood cultures negative Antimicrobials: Patient is on IV vancomycin and Rocephin Physical examination this is a morbidly obese well-developed middle-aged woman who is alert in no distress head atraumatic normocephalic neck is supple trachea midline chest rise symmetrical breath sounds diminished bases heart S1-S2 abdomen obese soft bowel sounds present extremities with right lower extremity edema erythema Assessment: 1. Right lower extremity cellulitis, improving 2. Morbid obesity Plan: Patient is doing better, right lower extremity looks much better today, continue antibiotics/elevation Consultation Date/Type/Reason Admit Date/Time Nov 30, 2018 at 21:19 Initial Consult Date 12/03/18 Type of Consult id Requesting Provider: TAL IRIZARRY Date/Time of Note DATE: 12/04/18 TIME: 13:42 Exam/Review of Systems Exam Vitals Vital Signs Date Temp Pulse Resp B/P (MAP) Pulse Ox O2 O2 Flow FiO2 Time Delivery Rate 12/04/18 98.3 85 18 132/84 97 07:26 (100) 12/02/18 Room Air 14:03 Intake and Output 12/03/18 12/03/18 12/04/18 1515:00 23:00 07:00 IntakeIntake Total 1090 ml 700 ml BalanceBalance 1090 ml 700 ml Results Result Diagram: 12/04/18 0618 12/03/18 0515 Results 24hrs Laboratory Tests Test 12/03/18 16:58 12/04/18 06:18 Vancomycin Level Trough 12.8 White Blood Count 12.7 H Red Blood Count 4.07 L Hemoglobin 11.2 L Hematocrit 35.9 L Mean Corpuscular Volume 88.2 Mean Corpuscular Hemoglobin 27.5 L Mean Corpuscular Hemoglobin Concent 31.2 L Red Cell Distribution Width 14.1 Platelet Count 292 Mean Platelet Volume 10.5 H Immature Granulocytes % 1.200 H Neutrophils % 68.9 Lymphocytes % 20.5 Monocytes % 6.4 Eosinophils % 2.4 Basophils % 0.6 Nucleated Red Blood Cells % 0.0 Immature Granulocytes # 0.150 H Neutrophils # 8.8 H Lymphocytes # 2.6 Monocytes # 0.8 Eosinophils # 0.3 Basophils # 0.1 Nucleated Red Blood Cells # 0.0 Medications Medication Current Medications Vancomycin HCl (Vanco Iv Per Pharmacy) VANCOMYCIN PER PHARMACY PER PROTOCOL XX ; Start 11/30/18 at 22:00 IV Flush (NS 3 ml) 3 ml PER PROTOCOL IV Last administered on 12/02/18at 10:14; Admin Dose 3 ML; Start 11/30/18 at 22:00 Ondansetron HCl (Zofran Inj) 4 mg Q6H PRN IV NAUSEA/VOMITING; Start 11/30/18 at 22:00 Acetaminophen (Tylenol Tab) 650 mg Q6H PRN PO .PAIN 1-3 OR TEMP Last administered on 12/01/18at 14:48; Admin Dose 650 MG; Start 11/30/18 at 22:00 Acetaminophen/ Hydrocodone Bitart ([place] (5/325)) 1 tab Q6H PRN PO .MOD PAIN 4- 6; Start 11/30/18 at 22:00 Docusate Sodium (Colace) 100 mg Q12H PRN PO .CONSTIPATION; Start 11/30/18 at 22:00 Bisacodyl (Dulcolax) 5 mg DAILY PRN PO .CONSTIPATION; Start 11/30/18 at 22:00 Enoxaparin Sodium (Lovenox) 40 mg DAILY SC Last administered on 12/04/18at 08:20; Admin Dose 40 MG; Start 12/01/18 at 09:00 Vancomycin HCl 1.25 gm/Sodium Chloride 250 ml @ 83.333 mls/ hr Q8H IVPB Last administered on 12/04/18 09:36; Admin Dose 83.333 MLS/HR; Start 12/02/18 at 18:00 Ceftriaxone Sodium 50 ml @ 100 mls/hr Q24H IVPB Last administered on 12/03/18at 16:11; Admin Dose 100 MLS/HR; Start 12/03/18 at 16:00 KIRILL STILL NP Dec 04, 2018 13:43
[2018-12-04 14:00] VITALS: BP 123/64; PULSE 86; RESP 18
--- NOTE | 2018-12-04 14:05 | PN ---
Date/Time of Note Date/Time of Note DATE: 12/04/18 TIME: 14:04 Assessment/Plan VTE Prophylaxis Risk score (from Nsg)>0 risk: 2 Pharmacological prophylaxis: LMWH Lines/Catheters IV Catheter Type (from Nrsg): Peripheral IV Urinary Cath still in place: No Assessment/Plan Hospital Course 1. Right lower extremity cellulitis/rash-improving Etiology unclear Consultation appreciated Surgery consultation for biopsy appreciated, follow-up on pathology Continue vancomycin IV, Rocephin and doxycycline Ultrasound of lower extremities negative for DVT, CT of the lower extremity is negative for abscess but cellulitis is noted 2. Morbid obesity Lifestyle changes Prophylaxis: Lovenox Result Diagram: 12/04/18 0618 12/03/18 0515 Results 24hrs Laboratory Tests Test 12/03/18 16:58 12/04/18 06:18 Vancomycin Level Trough 12.8 White Blood Count 12.7 H Red Blood Count 4.07 L Hemoglobin 11.2 L Hematocrit 35.9 L Mean Corpuscular Volume 88.2 Mean Corpuscular Hemoglobin 27.5 L Mean Corpuscular Hemoglobin Concent 31.2 L Red Cell Distribution Width 14.1 Platelet Count 292 Mean Platelet Volume 10.5 H Immature Granulocytes % 1.200 H Neutrophils % 68.9 Lymphocytes % 20.5 Monocytes % 6.4 Eosinophils % 2.4 Basophils % 0.6 Nucleated Red Blood Cells % 0.0 Immature Granulocytes # 0.150 H Neutrophils # 8.8 H Lymphocytes # 2.6 Monocytes # 0.8 Eosinophils # 0.3 Basophils # 0.1 Nucleated Red Blood Cells # 0.0 Subjective 24 Hr Interval Summary Constitutional: no complaints Exam/Review of Systems Exam Vitals Vital Signs Date Temp Pulse Resp B/P (MAP) Pulse Ox O2 O2 Flow FiO2 Time Delivery Rate 12/04/18 98.3 85 18 132/84 97 07:26 (100) 12/02/18 Room Air 14:03 Intake and Output 12/03/18 12/03/18 12/04/18 1515:00 23:00 07:00 IntakeIntake Total 1090 ml 700 ml BalanceBalance 1090 ml 700 ml Constitutional: alert, oriented Respiratory: clear to auscultation Cardiovascular: regular rate and rhythm Gastrointestinal: soft; No distended Musculoskeletal: No nl extremities to inspection Results Results 24hrs Laboratory Tests Test 12/03/18 16:58 12/04/18 06:18 Vancomycin Level Trough 12.8 White Blood Count 12.7 H Red Blood Count 4.07 L Hemoglobin 11.2 L Hematocrit 35.9 L Mean Corpuscular Volume 88.2 Mean Corpuscular Hemoglobin 27.5 L Mean Corpuscular Hemoglobin Concent 31.2 L Red Cell Distribution Width 14.1 Platelet Count 292 Mean Platelet Volume 10.5 H Immature Granulocytes % 1.200 H Neutrophils % 68.9 Lymphocytes % 20.5 Monocytes % 6.4 Eosinophils % 2.4 Basophils % 0.6 Nucleated Red Blood Cells % 0.0 Immature Granulocytes # 0.150 H Neutrophils # 8.8 H Lymphocytes # 2.6 Monocytes # 0.8 Eosinophils # 0.3 Basophils # 0.1 Nucleated Red Blood Cells # 0.0 Medications Medication Current Medications Vancomycin HCl (Vanco Iv Per Pharmacy) VANCOMYCIN PER PHARMACY PER PROTOCOL XX ; Start 11/30/18 at 22:00 IV Flush (NS 3 ml) 3 ml PER PROTOCOL IV Last administered on 12/02/18at 10:14; Admin Dose 3 ML; Start 11/30/18 at 22:00 Ondansetron HCl (Zofran Inj) 4 mg Q6H PRN IV NAUSEA/VOMITING; Start 11/30/18 at 22:00 Acetaminophen (Tylenol Tab) 650 mg Q6H PRN PO .PAIN 1-3 OR TEMP Last administered on 12/01/18at 14:48; Admin Dose 650 MG; Start 11/30/18 at 22:00 Acetaminophen/ Hydrocodone Bitart ([place] (5/325)) 1 tab Q6H PRN PO .MOD PAIN 4- 6; Start 11/30/18 at 22:00 Docusate Sodium (Colace) 100 mg Q12H PRN PO .CONSTIPATION; Start 11/30/18 at 22:00 Bisacodyl (Dulcolax) 5 mg DAILY PRN PO .CONSTIPATION; Start 11/30/18 at 22:00 Enoxaparin Sodium (Lovenox) 40 mg DAILY SC Last administered on 12/04/18at 08:20; Admin Dose 40 MG; Start 12/01/18 at 09:00 Vancomycin HCl 1.25 gm/Sodium Chloride 250 ml @ 83.333 mls/ hr Q8H IVPB Last administered on 12/04/18at 09:36; Admin Dose 83.333 MLS/HR; Start 12/02/18 at 18:00 Ceftriaxone Sodium 50 ml @ 100 mls/hr Q24H IVPB Last administered on 12/03/18at 16:11; Admin Dose 100 MLS/HR; Start 12/03/18 at 16:00 TAL IRIZARRY Dec 04, 2018 14:05
--- NOTE | 2018-12-04 15:04 | PN ---
"Date/Time of Note Date/Time of Note DATE: 12/04/18 TIME: 15:02 Assessment/Plan Lines/Catheters IV Catheter Type (from [facility]): Peripheral IV Burt in Place (from [facility]): No Assessment/Plan Chief Complaint/Hosp Course 1. Right lower extremity cellulitis of unknown etiology ; s/p Skin biopsy yesterday -Continue antibiotics per ID -Local care -await path 2. Leukocytosis: Improving -As above 3.Prediabetes: Hemoglobin A1c 6.1: -Highly encourage weight loss -Glucose optimization 4. Morbid obesity BMI: 48 -diet and exercise optimization -encourage weight loss Thank you. Patient seen and examined in collaboration with Dr. Hill Morris. Subjective 24 Hr Interval Summary S/p punch biopsy. No fevers, chills, sob, congested cough, cp, palpitations, anguiano, dizziness, n/v/d/dysuria. Exam/Review of Systems Vital Signs Vitals Vital Signs Date Temp Pulse Resp B/P (MAP) Pulse Ox O2 O2 Flow FiO2 Time Delivery Rate 12/04/18 98.2 86 18 123/64 100 14:00 (83) 12/02/18 Room Air 14:03 Intake and Output 12/03/18 12/03/18 12/04/18 1515:00 23:00 07:00 IntakeIntake Total 1090 ml 700 ml BalanceBalance 1090 ml 700 ml Exam Free Text/Dictation Constitutional: alert, oriented Psych: nl mood/affect; No anxiety Head: normocephalic, atraumatic Eyes: nl conjunctiva, nl lids, nl sclera ENMT: nl external ears & nose, nl lips & teeth, mucosa pink and moist Neck: supple, non-tender; No jvd Respiratory: normal air movement; No congested cough Cardiovascular: regular rate and rhythm, nl pulses, edema (Right lower extremity) Gastrointestinal: soft, non-tender; No ascites, No distended Musculoskeletal: nl extremities to inspection, nl gait and stance; No joint tenderness Extremities: normal pulses, pitting pedal edema (Right lower extremity 1+) Neurological: nl mental status, nl speech, nl strength Skin: rash or lesions (Right lower extremity: Anterior: Large confluent areas of erythema | posterior: Multiple bullae; no bleed from punch biopsy site) Results Result Diagram: 12/04/1861712/03/18 0515 TRICIA JOAQUIN NP Dec 04, 2018 15:04"
[2018-12-04] MEDS: CEFTRIAXONE 1 GM/50 ML (PMX) 50 ML IVPB SCH (16:43)
[2018-12-04 20:45] VITALS: BP 142/70; PULSE 94; RESP 18
[2018-12-05] MEDS: VANCOMYCIN HCL 1.25 GM in SOD CHLORIDE 0.9% 250 ML IVPB SCH ×4 (02:01→10:00)
[2018-12-05 02:02] VITALS: BP 124/75; PULSE 92; RESP 18
[2018-12-05 07:33] VITALS: BP 120/61; PULSE 81; RESP 18
[2018-12-05] MEDS: ENOXAPARIN 40 MG/0.4 ML SYG SC SCH (09:19)
--- NOTE | 2018-12-05 09:56 | PN ---
"Date/Time of Note Date/Time of Note DATE: 12/05/18 TIME: 09:52 Assessment/Plan Lines/Catheters IV Catheter Type (from [facility]): Peripheral IV Burt in Place (from [facility]): No Assessment/Plan Chief Complaint/Hosp Course 1. Right lower extremity cellulitis of unknown etiology ; s/p Skin biopsy yesterday> spoke with pathologist and will need to forward specimen to [facility] for 2nd opinion.subepithelial bullea -Continue antibiotics per ID -Local care -await path 2. Leukocytosis: Improving -As above6 3.Prediabetes: Hemoglobin A1c 6.1: -Highly encourage weight loss -Glucose optimization 4. Morbid obesity BMI: 48 -diet and exercise optimization -encourage weight loss Thank you. Patient seen and examined in collaboration with Dr. Hill Morris. Subjective 24 Hr Interval Summary Feels much better. Rash improving. No fevers, chills, sob, congested cough, cp, palpitations, anguiano, dizziness, nausea, vomiting, diarrhea, dysuria. Exam/Review of Systems Vital Signs Vitals Vital Signs Date Temp Pulse Resp B/P (MAP) Pulse Ox O2 O2 Flow FiO2 Time Delivery Rate 12/05/18 97.9 81 18 120/61 96 Room Air 07:33 (80) Intake and Output 12/04/18 12/04/18 12/05/18 1515:00 23:00 07:00 IntakeIntake Total 1050 ml 820 ml 250 ml BalanceBalance 1050 ml 820 ml 250 ml Exam Free Text/Dictation Constitutional: alert, oriented Psych: nl mood/affect; No anxiety Head: normocephalic, atraumatic Eyes: nl conjunctiva, nl lids, nl sclera ENMT: nl external ears & nose, nl lips & teeth, mucosa pink and moist Neck: supple, non-tender; No jvd Respiratory: normal air movement; No congested cough Cardiovascular: regular rate and rhythm, nl pulses, edema (Right lower extremity) Gastrointestinal: soft, non-tender; No ascites, No distended Musculoskeletal: nl extremities to inspection, nl gait and stance; No joint tenderness Extremities: normal pulses, pitting pedal edema (Right lower extremity 1+) Neurological: nl mental status, nl speech, nl strength Skin: rash or lesions (Right lower extremity: Anterior: Large confluent areas of erythema (much improved) | posterior: Multiple bullae; no bleed from punch biopsy site) (much improved) Results Result Diagram: 12/04/18 0618 12/05/18 0726 TRICIA JOAQUIN NP Dec 05, 2018 09:56"
--- NOTE | 2018-12-05 11:46 | CONS ---
Assessment/Plan Assessment/Plan Hospital Course (Demo Recall) No events, looks comfortable, no fevers Microbiology: Blood cultures negative Antimicrobials: Patient is on IV vancomycin and Rocephin Physical examination this is a morbidly obese well-developed middle-aged woman who is alert in no distress head atraumatic normocephalic neck is supple trachea midline chest rise symmetrical breath sounds diminished bases heart S1-S2 abdomen obese soft bowel sounds present extremities with right lower extremity edema erythema Assessment: 1. Right lower extremity cellulitis, improving 2. Morbid obesity Plan: Stable, pending skin bx results, continue abx, anticipate downgrade to PO upon dc home Consultation Date/Type/Reason Admit Date/Time Nov 30, 2018 at 21:19 Initial Consult Date 12/03/18 Type of Consult id Requesting Provider: TAL IRIZARRY Date/Time of Note DATE: 12/05/18 TIME: 11:45 Exam/Review of Systems Exam Vitals Vital Signs Date Temp Pulse Resp B/P (MAP) Pulse Ox O2 O2 Flow FiO2 Time Delivery Rate 12/05/18 97.9 81 18 120/61 96 Room Air 07:33 (80) Intake and Output 12/04/18 12/04/18 12/05/18 1515:00 23:00 07:00 IntakeIntake Total 1050 ml 820 ml 250 ml BalanceBalance 1050 ml 820 ml 250 ml Results Result Diagram: 12/04/18 0618 12/05/18 0726 Results 24hrs Laboratory Tests Test 12/05/18 07:26 Blood Urea Nitrogen 9 Creatinine 0.82 Medications Medication Current Medications Vancomycin HCl (Vanco Iv Per Pharmacy) VANCOMYCIN PER PHARMACY PER PROTOCOL XX ; Start 11/30/18 at 22:00 IV Flush (NS 3 ml) 3 ml PER PROTOCOL IV Last administered on 12/02/18at 10:14; Admin Dose 3 ML; Start 11/30/18 at 22:00 Ondansetron HCl (Zofran Inj) 4 mg Q6H PRN IV NAUSEA/VOMITING; Start 11/30/18 at 22:00 Acetaminophen (Tylenol Tab) 650 mg Q6H PRN PO .PAIN 1-3 OR TEMP Last administered on 12/01/18at 14:48; Admin Dose 650 MG; Start 11/30/18 at 22:00 Acetaminophen/ Hydrocodone Bitart ([place] (5/325)) 1 tab Q6H PRN PO .MOD PAIN 4- 6; Start 11/30/18 at 22:00 Docusate Sodium (Colace) 100 mg Q12H PRN PO .CONSTIPATION; Start 11/30/18 at 22:00 Bisacodyl (Dulcolax) 5 mg DAILY PRN PO .CONSTIPATION; Start 11/30/18 at 22:00 Enoxaparin Sodium (Lovenox) 40 mg DAILY SC Last administered on 12/05/18at 09:19; Admin Dose 40 MG; Start 12/01/18 at 09:00 Vancomycin HCl 1.25 gm/Sodium Chloride 250 ml @ 83.333 mls/ hr Q8H IVPB Last administered on 12/05/18at 02:01; Admin Dose 83.333 MLS/HR; Start 12/02/18 at 18:00 Ceftriaxone Sodium 50 ml @ 100 mls/hr Q24H IVPB Last administered on 12/04/18at 16:43; Admin Dose 100 MLS/HR; Start 12/03/18 at 16:00 KIRILL STILL NP Dec 05, 2018 11:46
[2018-12-05] MEDS ORDERED: CEPH-443 PO (12:38)
[2018-12-05] MEDS ORDERED: DOXY100T21 PO (12:38)
--- NOTE | 2018-12-05 12:39 | PDOCDIS ---
Discharge Instructions CONDITION [id number] Patient Condition: [id number] Good HOME CARE INSTRUCTIONS: [id number] Diet Instructions: [id number] Reduced Calorie ACTIVITY: [id number] Activity Restrictions: [id number] No Restrictions FOLLOW UP/APPOINTMENTS Follow-up Plan FOLLOW UP WITH YOUR PCP IN 1-2 WEEKS TAL IRIZARRY Dec 05, 2018 12:39
--- NOTE | 2018-12-05 14:41 | DS ---
Date/Time of Note Date/Time of Note DATE: 12/05/18 TIME: 14:38 Discharge Summary Admission/Discharge Info Admit Date/Time Nov 30, 2018 at 21:19 Discharge Date/Time Dec 05, 2018 at 14:20 Discharge Diagnosis 1. Right lower extremity cellulitis/rash-improving Etiology unclear ID consultation appreciated Surgery consultation for biopsy appreciated, follow-up on pathology Status post vancomycin IV, Rocephin and doxycycline DC with Keflex and doxycycline Ultrasound of lower extremities negative for DVT, CT of the lower extremity is negative for abscess but cellulitis is noted 2. Morbid obesity Lifestyle changes Patient Condition: Good Hospital Course Patient is a 53-year-old female with history of morbid obesity who presents with a right lower extremity cellulitis/rash. Patient received IV antibiotics and was seen by ID with improvements in the infection. Surgery consultation was obtained for skin biopsy and biopsy was forwarded to [facility]. Patient was sent for DC with oral antibiotics, the day of discharge patient's vitals, labs and physical exam are stable. Home Meds Active Scripts Cephalexin* (Keflex*) 500 Mg Capsule, 500 MG PO Q8 for 7 Days, #21 CAP Prov:TAL IRIZARRY 12/05/18 Doxycycline Monohydrate* (Doxycycline Monohydrate*) 100 Mg Tablet, 100 MG PO BID for 7 Days, #14 TAB Prov:TAL IRIZARRY 12/05/18 Follow-up Plan FOLLOW UP WITH YOUR PCP IN 1-2 WEEKS Primary Care Provider [facility] Time spent on discharge: > 30 minutes TAL IRIZARRY Dec 05, 2018 14:41
== END 2018-12-05 14:20 | disposition home or self-care (01) | DRG 603 ==
LOC: E/R 15:13 → 5EC 21:19
PROVIDERS: ADMIT Family Medicine; ATTEND Internal Medicine
PROC: 0HBKXZX Excision of Right Lower Leg Skin, External Approach, Diagnostic (ICD-10-PCS; principal; 2018-12-03)
DX: L03.115 Cellulitis of right lower limb (principal); Z68.42 Body mass index [BMI] 45.0-49.9, adult; E66.01 Morbid (severe) obesity due to excess calories; R73.03 Prediabetes; R21 Rash and other nonspecific skin eruption
CPT/HCPCS: 36415; 73700; 80048; 80053; 80061; 80202; 82306; 82565; 83036; 83605; 83735; 84443; 84520; 85025; 85610; 85651; 85730; 86140; 88305; 93971; 96374; J0696; J1650; J1885; J3370; J7040; J7050; Q9967